=== PATIENT | female | born 2000 | race Caucasian/White ===

== ENCOUNTER → 2020-06-29 15:57 | Outpatient (CLI) | payer OTHER, SELFPAY ==
--- NOTE | ~2020-06-29 | US_ITS ---
EXAMINATION: US thyroid EXAM DATE: 06/29/2020 16:12 INDICATION: Goiter. TECHNIQUE: Multiple grayscale and Doppler images of the thyroid were obtained (by a technologist who performed the scan) and subsequently reviewed. Individual nodules and recommendations may be reporte d in accordance with TI-RADS system as designated by the 2017 ACR White Paper TI-RADS committee. The re is no prior study for comparison. FINDINGS: The right thyroid lobe measures 4.9 x 1.5 x 1.67 m, the left measuring 4.7 x 1.3 x 1.0 cm. There is a n anechoic cystic nodule measuring 3 mm in the right there are lobe, not a clinically significant fin ding. There is otherwise homogeneous thyroid echogenicity than expected amount of vascularity. IMPRESSION: 1. Unremarkable thyroid ultrasound exam. Reviewed, dictated and finalized at location A.
== END ==
PROVIDERS: Visit Provider Internal Medicine Endocrinology, Diabetes & Metabolism
DX: E04.9 Nontoxic goiter, unspecified (principal)
CPT/HCPCS: 76536

== ENCOUNTER → 2022-07-06 10:18 | Outpatient (CLI) | payer OTHER, SELFPAY ==
--- NOTE | ~2022-07-06 | US_ITS ---
EXAMINATION: US breast RT limited HISTORY: Palpable lump in the lower outer quadrant of the right breast TECHNIQUE: Limited right breast ultrasound is performed. FINDINGS: There is a 2.3 x 0.7 cm oval, circumscribed, parallel, complex cystic and solid mass at the 7:00 location, 6 cm from the nipple corresponding to the palpable abnormality of concern. There is p osterior acoustic enhancement and peripheral vascularity. IMPRESSION: Right breast mass in the area of palpable concern which could reflect clustered microcysts dense myranda st tissue, or fibroadenoma however, continued clinical physical examination and repeat targeted right breast ultrasound in six months are recommended. BI-RADS category 3, probably benign findings. Reviewed, dictated and finalized at location A. IMPRESSION: Right breast mass in the area of palpable concern which could reflect clustered microcysts dense breast tissue, or fibroadenoma however, continued clinical ph ysical examination and repeat targeted right breast ultrasound in six months ar e recommended. BI-RADS category 3, probably benign findings.
== END ==
PROVIDERS: PCP Nurse Practitioner; Visit Provider Nurse Practitioner Obstetrics & Gynecology
DX: N63.10 Unspecified lump in the right breast, unspecified quadrant (principal); R92.8 Other abnormal and inconclusive findings on diagnostic imaging of breast
CPT/HCPCS: 76642

== ENCOUNTER → 2022-11-03 10:26 | Outpatient (CLI) | payer OTHER, SELFPAY ==
--- NOTE | ~2022-11-03 | US_ITS ---
EXAMINATION: US soft tissue head and neck DATE: 11/03/2022 10:46 INDICATION: Submandibular lymphadenopathy TECHNIQUE: Multiple grayscale and Doppler ultrasound images of the left submandibular region of maik rn were obtained. COMPARISON: None FINDINGS: Normal appearance to the subcutaneous fat, underlying musculature and submandibular gland at the graciela on of concern. No abnormal masses or fluid collections identified. Normal sized jugular chain lymph n odes are identified measuring up to 5 mm maximal short axis diameter. IMPRESSION: 1. Normal study. No pathologically enlarged lymphadenopathy or other abnormal masses or fluid collect ions identified in the left submandibular region of concern. Reviewed, dictated and finalized at location A. IMPRESSION: 1. Normal study. No pathologically enlarged lymphadenopathy or other abnormal m asses or fluid collections identified in the left submandibular region of [facility].
== END ==
PROVIDERS: PCP Nurse Practitioner; Visit Provider Nurse Practitioner
DX: R59.0 Localized enlarged lymph nodes (principal)
CPT/HCPCS: 76536